=== PATIENT | male | born 1995 | race Hispanic/Latino ===

== ENCOUNTER 2017-11-16 16:52 | Emergency (ER) | payer OTHER ==
[2017-11-16] MEDS ORDERED: Ibuprofen 800 MG TAB ONE (17:38)
== END 2017-11-16 18:06 | disposition home or self-care (01) ==
LOC: SCSER 16:52
DX: J02.9 Acute pharyngitis, unspecified (principal)
CPT/HCPCS: 87081; 87430; 99283